=== PATIENT | female | born 1995 | race Caucasian/White ===

== ENCOUNTER 2018-09-08 09:06 | Emergency (ER) | payer OTHER ==
[~2018-09-08] VITALS: Ht 149.9 cm; Wt 55.8 kg
[2018-09-08 09:12] VITALS: Ht 149.9 cm; Wt 55.8 kg
[2018-09-08 10:53] VITALS: BP 104/55
== END 2018-09-08 10:53 | disposition home or self-care (01) ==
LOC: ED 09:06
DX: G43.909 Migraine, unspecified, not intractable, without status migrainosus (principal); H66.91 Otitis media, unspecified, right ear; R11.10 Vomiting, unspecified; R53.1 Weakness
CPT/HCPCS: J0780; J1885; J7030